=== PATIENT | male | born 1960 | race Two or more races ===

== ENCOUNTER 2021-08-08 12:22 | Inpatient (IN) | payer OTHER ==
[~2021-08-08] VITALS: Ht 190.5 cm; Wt 77.1 kg
--- NOTE | 2021-08-08 12:40 | NUR ---
[id number] C/O GENERALIZED WEAKNESS SINCE THIS MORNING, DIALYSIS PT DIALYSIS NOT DONE TODAY. THE PATIENT IS ALERT AND ORIENTED X4. IN ROOM AIR AND DENIES SOB. RESPIRATION REGULAR AND UNLABORED. THE PATIENT IS ATTACHED TO THE MONITOR. WARM BLANKET PROVIDED FOR COMFORT. WILL CONTINUE TO MONITOR THE PATIENT.
[2021-08-08 14:13] LABS: BASOPHILS % (AUTO) 0.4 % (0.0-2.0); EOSINOPHILS % (AUTO) 0.9 % (0.0-6.0); HEMATOCRIT 30 % (39-51); HEMOGLOBIN 9.9 g/dL (13.5-17.5); LYMPHOCYTES # (AUTO) 0.3 K/uL (0.8-4.8); MEAN CORPUSCULAR HGB CONC 33 g/dl (31.0-36.0); MEAN CORPUSCULAR VOLUME 99 fL (80-96); MONOCYTES # (AUTO) 0.4 K/uL (0.1-1.30); MONOCYTES % (AUTO) 10.3 % (2.0-12.0); NEUTROPHILS # (AUTO) 3.1 K/uL (1.8-8.9); NEUTROPHILS % (AUTO) 80.4 % (43.0-81.0); PLATELET COUNT (AUTO) 117 K/uL (150-450); RED BLOOD CELL COUNT(AUTO) 2.98 MIL/uL (4.5-6.0); WHITE BLOOD COUNT (AUTO) 3.8 K/uL (4.3-11.0)
[2021-08-08 14:29] LABS: ALBUMIN 3.7 g/dL (3.4-5.0); BILIRUBIN,TOTAL 0.5 mg/dL (0.2-1.0); CALCIUM, SERUM 8.1 mg/dL (8.5-10.1); TOTAL PROTEIN, SERUM 7.5 g/dL (6.4-8.2)
[2021-08-08] MEDS ORDERED: GABAPENTIN 100 MG CAPSULE PO ONE (14:30)
[2021-08-08 14:32] LABS: CREATININE 9.7 mg/dL (0.6-1.3); POTASSIUM 7.5 mmol/L (3.5-5.1)
[2021-08-08] MEDS ORDERED: DEXTROSE 50%-WATER 50 ML DISP.SYRIN ONE ×2 (14:46→16:08)
[2021-08-08] MEDS ORDERED: CALCIUM CHLORIDE 1,000 MG/10 ML DISP.SYRIN ONE (14:46)
[2021-08-08] MEDS ORDERED: INSULIN REGULAR, HUMAN 100 UNIT/ML 10 ML VIAL ONE (14:47)
[2021-08-08] MEDS ORDERED: ALBUTEROL FS 2.5 MG/3 ML VIAL.NEB ONE (14:48)
[2021-08-08] MEDS ORDERED: INSULIN REGULAR, HUMAN 100 UNIT/ML 10 ML VIAL SQ ONE (15:00)
[2021-08-08] MEDS ORDERED: CALCIUM CHLORIDE 1,000 MG/10 ML DISP.SYRIN IV ONE (15:00)
[2021-08-08] MEDS ORDERED: ALBUTEROL FS 2.5 MG/3 ML VIAL.NEB NEB ONE (15:00)
[2021-08-08] MEDS ORDERED: DEXTROSE 50%-WATER 50 ML DISP.SYRIN IV ONE (15:00)
--- NOTE | 2021-08-08 15:18 | NUR ---
COVID ANTIGEN SWAB DONE AND SENT TO THE LAB
[2021-08-08] MEDS ORDERED: GABAPENTIN 100 MG CAPSULE ONE (15:43)
--- NOTE | 2021-08-08 15:50 | NUR ---
CALLED [facility] [phone]
--- NOTE | 2021-08-08 16:05 | NUR ---
DR. HARDEN FROM [facility] SPEAKING WITH DR. RODRÍGUEZ.
[2021-08-08] MEDS ORDERED: BISO5TAB20 PO (16:20)
[2021-08-08] MEDS ORDERED: ATOR40TA PO (16:20)
[2021-08-08] MEDS ORDERED: HYDR-3980 PO (16:20)
[2021-08-08] MEDS ORDERED: GABA-532 PO (16:20)
[2021-08-08] MEDS ORDERED: OMEP20TA5 PO (16:20)
[2021-08-08] MEDS ORDERED: LISI2.5T2 PO (16:20)
--- NOTE | 2021-08-08 16:22 | NUR ---
PER DR RODRÍGUEZ DEXTROSE 50 % IV ONCE. THE ORDER IS READ BACK, VERIFIED. NOTED AND CARRIED OUT.
[2021-08-08] MEDS ORDERED: DEXTROSE 50%-WATER 50 ML DISP.SYRIN IVP ONE (16:30)
--- NOTE | 2021-08-08 17:38 | NUR ---
[facility] CALLED AIR TRAFFIC CONTROL SUPERVISOR PAGED.
[2021-08-08] MEDS ORDERED: Z GUARD REMEDY 4 OZ OINT TP PRN (18:30)
[2021-08-08] MEDS ORDERED: ONDANSETRON HCL/PF 4 MG/2 ML VIAL IVP PRN (18:30)
[2021-08-08] MEDS ORDERED: MAGNESIUM HYDROXIDE 30 ML UDC PO PRN (18:30)
[2021-08-08] MEDS ORDERED: MAG HYDROX/AL HYDROX/SIMETH 30 ML UDC PO PRN (18:30)
[2021-08-08] MEDS ORDERED: ACETAMINOPHEN 325 MG TABLET PO PRN (18:30)
--- NOTE | 2021-08-08 19:26 | NUR ---
ATTEMPTED TO GIVE REPORT, NURSE IS BUSY GETTING REPORT FOR OTHER PATIENT
--- NOTE | 2021-08-08 19:34 | NUR ---
RN NOTES RECEIVED ER ADMISSION REPORT FROM DALIA MUNOZ. ALL PERTINENT ADMISSION INFO REGARDING PT NOTED. WILL WAIT FOR PT TO BE TRANSFERRED TO UNIT AND ADDRESS NEEDS ACCORDINGLY. TAIL WORKER MADE AWARE.
--- NOTE | 2021-08-08 19:38 | NUR ---
REPORT GIVEN TO EASTON GÓMEZ FOR [facility]
[2021-08-08 20:00] VITALS: BP 147/83
--- NOTE | 2021-08-08 20:00 | NUR ---
RN NOTES RECEIVED PT FROM ER VIA GURNEY ACCOMPANIED BY 2 ER STAFF AND TRANSFERRED TO BED INDEPENDENTLY. PT IS A/OX4;ON ROOM AIR WITH RESPIRATIONS EVEN AND UNLABORED. COMPREHENSIVE PHYSICAL ASSESSMENT AND PATIENT CARE DONE. CALL LIGHT WITHIN REACH, SAFETY MEASURES WILL CONTINUE MONITOR AND ASSESS THROUGHOUT THE SHIFT. WILL CARRY OUT MD ORDERS ACCORDINGLY. BATTERY HAND MADE AWARE.
[2021-08-08 20:01] LABS: CALCIUM, SERUM 8.6 mg/dL (8.5-10.1)
[2021-08-08 20:05] LABS: POTASSIUM 6.4 mmol/L (3.5-5.1)
[2021-08-08 20:10] LABS: ALBUMIN 3.4 g/dL (3.4-5.0); BILIRUBIN,TOTAL 0.5 mg/dL (0.2-1.0); TOTAL PROTEIN, SERUM 7.1 g/dL (6.4-8.2)
[2021-08-08] MEDS ORDERED: ATORVASTATIN 40 MG TABLET PO SCH (22:00)
[2021-08-09] VITALS: BP 146/75
[2021-08-09 04:00] VITALS: BP 125/68
--- NOTE | 2021-08-09 04:00 | NUR ---
RN NOTES PATIENT REMAINED TO BE IN NO SIGNS OF ACUTE RESPIRATORY DISTRESS , SAFE ENVIRONMENT MAINTAINED FOR PT. WILL CONTINUE TO MONITOR AND REASSESS FOR ANY CHANGES THROUGHOUT THE SHIFT.
--- NOTE | 2021-08-09 06:38 | NUR ---
RN CLOSING NOTE: PATIENT REMAINS IN ROOM IN NO SIGNS OF RESPIRATORY DISTRESS, PATIENT STILL ON ROOM AIR;TOLERATING WELL SATURATING @ >95% SP02. SAFETY MEASURES IMPLEMENTED, BED IN LOWEST POSITION, LOCKED, SIDE RAILS UP, CALL LIGHT WITHIN REACH. ALL NEEDS AND ORDERS ADDRESSED DURING THE SHIFT. IV ACCESS MAINTAINED INTACT, SECURED AND FLUSHING WELL. ALL DUE MEDS GIVEN ORDERED & SCHEDULED ; PATIENT TOLERATED WELL. PATIENT KEPT CLEAN AND COMFORTABLE WITHIN THE SHIFT. PATIENT ENDORSED TO INCOMING SHIFT RN WITH STABLE VITAL SIGN AND FOR CONTINUITY OF CARE.
--- NOTE | 2021-08-09 07:00 | NUR ---
RN NOTE RECEIVED PATIENT IN BED RESTING ALERT ORIENTEDX4 VERBALLY RESPONSIVE ON ROOM AIR O2:97% IV SITE IS ON RIGHT FOREARM AND LEFT UPPER CHEST HD CATH,INTACT PATENT,AMBULATORY,SAFETY MEASURE IMPLEMENT BED IN LOW POSITION,AND LOCKED.CALL LIGHT WITHIN REACH CONTINUE TO MONITOR.
[2021-08-09 07:27] LABS: CALCIUM, SERUM 7.9 mg/dL (8.5-10.1); MAGNESIUM 2.3 mg/dL (1.8-2.4); PHOSPHORUS 2.4 mg/dL (2.5-4.9)
[2021-08-09 07:36] LABS: POTASSIUM 7.2 mmol/L (3.5-5.1)
[2021-08-09 07:37] LABS: CREATININE 7.7 mg/dL (0.6-1.3)
[2021-08-09 07:53] LABS: BASOPHILS % (AUTO) 0.5 % (0.0-2.0); EOSINOPHILS % (AUTO) 3.8 % (0.0-6.0); HEMATOCRIT 33 % (39-51); HEMOGLOBIN 10.8 g/dL (13.5-17.5); LYMPHOCYTES # (AUTO) 0.5 K/uL (0.8-4.8); LYMPHOCYTES % (AUTO) 15.4 % (20.0-44.0); MEAN CORPUSCULAR HGB CONC 33 g/dl (31.0-36.0); MEAN CORPUSCULAR VOLUME 100 fL (80-96); MONOCYTES # (AUTO) 0.5 K/uL (0.1-1.30); NEUTROPHILS # (AUTO) 2.3 K/uL (1.8-8.9); NEUTROPHILS % (AUTO) 65.3 % (43.0-81.0); PLATELET COUNT (AUTO) 100 K/uL (150-450); RED BLOOD CELL COUNT(AUTO) 3.28 MIL/uL (4.5-6.0); WHITE BLOOD COUNT (AUTO) 3.5 K/uL (4.3-11.0)
[2021-08-09 08:00] VITALS: BP 126/77
--- NOTE | 2021-08-09 08:00 | NUR ---
RN NOTE RECEIVED CRITICAL LAB VALUE POTASSIUM 7.2 CALLED GIANNA VALENCIA HE ORDERED STAT HEMODIALYSIS,NOTED AND CARRIED OUT.
[2021-08-09] MEDS: GABAPENTIN 100 MG CAPSULE PO SCH ×2 (08:08→17:00)
--- NOTE | 2021-08-09 08:30 | NUR ---
RN NOTE PATIENT STARTS DIALYSIS AT THIS TIME PER DR ESCALANTE,CONTINUE TO MONITOR.
[2021-08-09] MEDS ORDERED: PANTOPRAZOLE 40 MG TABLET.DR PO SCH (09:00)
[2021-08-09] MEDS ORDERED: BISOPROLOL FUMARATE 5 MG TABLET PO SCH (09:00)
[2021-08-09] MEDS ORDERED: HYDROCODONE/APAP 10/325MG TABLET PO PRN (09:30)
[2021-08-09 12:00] VITALS: BP 103/62
--- NOTE | 2021-08-09 13:00 | NUR ---
RN NOTE DIALYSIS DONE AND TOOK OUT 1450 ML FLUID OUT OF BODY CONTINUE TO MONITOR.
[2021-08-09 14:16] LABS: CREATININE 5.1 mg/dL (0.6-1.3); POTASSIUM 4.4 mmol/L (3.5-5.1)
[2021-08-09 16:00] VITALS: BP 90/59
--- NOTE | 2021-08-09 19:00 | NUR ---
RN NOTE PATIENT WANTS GO HOME AMA NOTIFIED DR SANCHEZ,HE SIGNED AMA PAPER AND PICKED UP HIS BELONGINGS AND SIGNED BELONGING PAPER.
--- NOTE | 2021-08-09 19:27 | NUR ---
RN NOTE PATIENT LEFT AMA IN STABLE CONDITION EDUCATED THE PATIENT REGARDING MEDICATION HE VERBALIZED UNDERSTOOD ALL TEACHING IV SITE REMOVED NO BLEEDING NOT,DRESSED INTACT.BROTHER PICKED HIM UP. Addendum: 08/09/21 at 1957 by ANTHONY COULTER RN FILLED OUT INCIDENT REPORT IN COMPUTER NUMBER IS [id number]
[2021-08-10] MEDS ORDERED: LISINOPRIL (5MG) 5 MG TABLET PO SCH (09:00)
== END 2021-08-09 20:19 | disposition left against medical advice (07) | DRG 640 ==
LOC: ER 12:42 → TELE1 19:33
PROVIDERS: ADMIT Internal Medicine; ATTEND Internal Medicine
PROC: 5A1D70Z Performance of Urinary Filtration, Intermittent, Less than 6 Hours Per Day (ICD-10-PCS; principal; 2021-08-08)
DX: E87.5 Hyperkalemia (principal); N18.6 End stage renal disease; I12.0 Hypertensive chronic kidney disease with stage 5 chronic kidney disease or end stage renal disease; Z99.2 Dependence on renal dialysis; Z53.29 Procedure and treatment not carried out because of patient's decision for other reasons; Z20.822 Contact with and (suspected) exposure to COVID-19; G89.29 Other chronic pain; Z74.09 Other reduced mobility
CPT/HCPCS: 36415; 71045-TC; 80048-TC; 80053-TC; 82962-TC; 83735-TC; 84100-TC; 85025-TC; 86706; 87081-TC; 87340; 90935-TC; 94762-TC; 94799-TC; C9803; G0378; J1815; J3490; J7030

== ENCOUNTER 2021-10-19 17:41 | Emergency (ER) | payer OTHER ==
[~2021-10-19] VITALS: Ht 188 cm; Wt 58.5 kg
[~2021-10-19 17:41] MED LIST: ATOR40TA PO; BISO5TAB20 PO; GABA-532 PO; HYDR-3980 PO; LISI2.5T2 PO; OMEP20TA5 PO
--- NOTE | 2021-10-19 17:48 | NUR ---
BIBA RA78 Weak/dizzy post dialysis. PLACED ON BED, AAOX4, BREATHING EVEN AND UNLABORED SATURATING AT 98%, BP-83/50
--- NOTE | 2021-10-19 18:00 | NUR ---
AT BED SIDE
[2021-10-19] MEDS ORDERED: IV NS 0.9% 500 ML BAG IV ONE (18:30)
--- NOTE | 2021-10-19 18:33 | NUR ---
PUBLIC AFFAIRS SPECIALIST AT BED SIDE
[2021-10-19 19:09] LABS: CALCIUM, SERUM 7.1 mg/dL (8.5-10.1); CARBON DIOXIDE 30 mmol/L (21-32); CHLORIDE 99 mmol/L (98-107); CREATININE 5.7 mg/dL (0.6-1.3); GLUCOSE 81 mg/dL (74-106); POTASSIUM 3.6 mmol/L (3.5-5.1); SODIUM SERUM 138 mmol/L (136-145); UREA NITROGEN, BLOOD 16 mg/dL (7-18)
[2021-10-19 19:15] LABS: ALANINE AMINOTRANSFERASE 12 U/L (12-78); ALBUMIN 2.8 g/dL (3.4-5.0); ALKALINE PHOSPHATASE 54 U/L (46-116); ASPARTATE AMINOTRANSFERASE 21 U/L (15-37); BILIRUBIN,DIRECT 0.2 mg/dL (0.0-0.2); BILIRUBIN,TOTAL 0.4 mg/dL (0.2-1.0); TOTAL PROTEIN, SERUM 6.5 g/dL (6.4-8.2)
[2021-10-19 19:16] LABS: MAGNESIUM 1.9 mg/dL (1.8-2.4); PHOSPHORUS 2.9 mg/dL (2.5-4.9)
[2021-10-19 20:12] LABS: BASOPHILS % (AUTO) 0.6 % (0.0-2.0); EOSINOPHILS % (AUTO) 4.9 % (0.0-6.0); HEMATOCRIT 26 % (39-51); HEMOGLOBIN 8.5 g/dL (13.5-17.5); LYMPHOCYTES # (AUTO) 0.3 K/uL (0.8-4.8); LYMPHOCYTES % (AUTO) 16.5 % (20.0-44.0); MEAN CORPUSCULAR HGB CONC 33 g/dl (31.0-36.0); MEAN CORPUSCULAR VOLUME 97 fL (80-96); MONOCYTES # (AUTO) 0.2 K/uL (0.1-1.30); NEUTROPHILS # (AUTO) 1.3 K/uL (1.8-8.9); PLATELET COUNT (AUTO) 133 K/uL (150-450); RED BLOOD CELL COUNT(AUTO) 2.65 MIL/uL (4.5-6.0)
[2021-10-19 20:22] LABS: WHITE BLOOD COUNT (AUTO) 1.9 K/uL (4.3-11.0)
--- NOTE | 2021-10-19 20:26 | NUR ---
CRITICAL LAB - WBC 1.9
--- NOTE | 2021-10-19 21:25 | NUR ---
HEEL GUMMER AT PT'S BEDSIDE
[2021-10-19] MEDS ORDERED: HYDROCODONE/APAP 5/325MG TABLET PO ONE (21:30)
[2021-10-19 21:48] LABS: EOSINOPHILS % (MANUAL) 3 % (0-4); LYMPHOCYTES % (MANUAL) 18 % (16-48); MONOCYTES % (MANUAL) 8 % (0-11.0); NEUTROPHILS % (MANUAL) 71 (42-76)
--- NOTE | 2021-10-19 22:53 | NUR ---
CALLED [facility], AWAITING CALL BACK FOR DISCHARGE TRANSPORT
--- NOTE | 2021-10-19 23:08 | NUR ---
DR. HAROON DUMONT ON PHONE CALL WITH FROM [place].
--- NOTE | 2021-10-19 23:09 | NUR ---
PATIENT LIVES WITH HIS BROTHER TAMIKA [id number] 2007 AT [address] [facility].[id number] PATIENT CLAIMS THAT IT DOESNT NEED A MERAZ TO THEIR DOOR IT HAS A COMBINATION NUMBER THAT HE CAN TELL TO THE EMT TO OPEN.
--- NOTE | 2021-10-19 23:30 | NUR ---
[facility] SET UP TRANSPORT HOME ETA 0030 VIA [facility]
--- NOTE | 2021-10-19 23:56 | NUR ---
REPORT GIVEN TO [facility] FOR PT TO DC HOME. [facility] AT PT'S BEDSIDE
[2021-10-20 00:14] VITALS: BP 121/78
== END 2021-10-20 00:15 | disposition home or self-care (01) ==
LOC: ER 17:44
DX: I95.3 Hypotension of hemodialysis (principal); I12.0 Hypertensive chronic kidney disease with stage 5 chronic kidney disease or end stage renal disease; N18.6 End stage renal disease; M48.00 Spinal stenosis, site unspecified; I48.91 Unspecified atrial fibrillation; Z99.2 Dependence on renal dialysis; Z79.899 Other long term (current) drug therapy
CPT/HCPCS: 99285; 71045; 93005; 85025; 80048; 80076; 83735; 84100; 36415; 84484 ×3; 85007; J7040

== ENCOUNTER 2021-11-21 15:08 | Emergency (ER) | payer OTHER ==
[~2021-11-21] VITALS: Ht 188 cm; Wt 65.8 kg
[2021-11-21 16:04] LABS: BASOPHILS % (AUTO) 0.6 % (0.0-2.0); EOSINOPHILS % (AUTO) 10.5 % (0.0-6.0); HEMATOCRIT 29 % (39-51); HEMOGLOBIN 9.4 g/dL (13.5-17.5); LYMPHOCYTES # (AUTO) 0.6 K/uL (0.8-4.8); LYMPHOCYTES % (AUTO) 15.9 % (20.0-44.0); MEAN CORPUSCULAR HGB CONC 33 g/dl (31.0-36.0); MEAN CORPUSCULAR VOLUME 97 fL (80-96); MONOCYTES # (AUTO) 0.5 K/uL (0.1-1.30); MONOCYTES % (AUTO) 12.8 % (2.0-12.0); NEUTROPHILS # (AUTO) 2.4 K/uL (1.8-8.9); NEUTROPHILS % (AUTO) 60.2 % (43.0-81.0); PLATELET COUNT (AUTO) 176 K/uL (150-450); RED BLOOD CELL COUNT(AUTO) 2.95 MIL/uL (4.5-6.0)
[2021-11-21 16:17] LABS: CALCIUM, SERUM 8.9 mg/dL (8.5-10.1); CARBON DIOXIDE 24 mmol/L (21-32); CHLORIDE 95 mmol/L (98-107); GLUCOSE 88 mg/dL (74-106); POTASSIUM 5.4 mmol/L (3.5-5.1); SODIUM SERUM 135 mmol/L (136-145); UREA NITROGEN, BLOOD 54 mg/dL (7-18)
[2021-11-21 16:19] LABS: CREATININE 10.6 mg/dL (0.6-1.3)
[2021-11-21 16:30] LABS: ALANINE AMINOTRANSFERASE 6 U/L (12-78); ALBUMIN 4.6 g/dL (3.4-5.0); ALKALINE PHOSPHATASE 51 U/L (46-116); ASPARTATE AMINOTRANSFERASE 13 U/L (15-37); BILIRUBIN,DIRECT 0.2 mg/dL (0.0-0.2); BILIRUBIN,TOTAL 0.5 mg/dL (0.2-1.0); LIPASE 171 U/L (73-393); TOTAL PROTEIN, SERUM 8.5 g/dL (6.4-8.2)
[2021-11-21] MEDS ORDERED: SODIUM POLYSTYRENE SULFONATE 15 G/60 ML BOTTLE PO ONE (17:30)
[2021-11-21 17:31] VITALS: BP 132/75
[2021-11-21] MEDS ORDERED: SODIUM POLYSTYRENE SULFONATE 15 G/60 ML BOTTLE ONE (17:42)
== END 2021-11-21 19:19 | disposition short-term general hospital (02) ==
LOC: ER 15:10
DX: R53.1 Weakness (principal); Z91.15 Patient's noncompliance with renal dialysis; I12.0 Hypertensive chronic kidney disease with stage 5 chronic kidney disease or end stage renal disease; N18.6 End stage renal disease; Z99.2 Dependence on renal dialysis; E87.5 Hyperkalemia; Z98.890 Other specified postprocedural states; Z95.2 Presence of prosthetic heart valve; I44.7 Left bundle-branch block, unspecified; Z79.899 Other long term (current) drug therapy; Z20.822 Contact with and (suspected) exposure to COVID-19; R91.8 Other nonspecific abnormal finding of lung field; R09.89 Other specified symptoms and signs involving the circulatory and respiratory systems
CPT/HCPCS: 99291; 87426; 93005; 71045; 85025; 80048; 87040 ×2; 83605; 83690; 80076; 36415; 84484; C9803

== ENCOUNTER 2022-01-19 16:04 | Emergency (ER) | payer OTHER ==
[~2022-01-19] VITALS: Ht 188 cm; Wt 65.8 kg
--- NOTE | 2022-01-19 17:02 | NUR ---
[id number] HOME C/O LOWER BACK AND LLE PAIN AND SWELLING S/P FALLING OFF HIS CHAIR. PLACED ON BED, AAOX4, BREATHING EVEN AND UNLABORED, IN PAIN 8 PS.
--- NOTE | 2022-01-19 18:25 | NUR ---
PAYABLE PROCESSOR AT BEDSIDE
--- NOTE | 2022-01-19 18:43 | NUR ---
SWAB FOR COVID19 SENT TO LAB
[2022-01-19 19:33] LABS: ALBUMIN 3.5 g/dL (3.4-5.0); BILIRUBIN,DIRECT 0.2 mg/dL (0.0-0.2); BILIRUBIN,TOTAL 0.4 mg/dL (0.2-1.0); CALCIUM, SERUM 7.9 mg/dL (8.5-10.1); CREATININE 4.3 mg/dL (0.6-1.3); POTASSIUM 4.3 mmol/L (3.5-5.1); TOTAL PROTEIN, SERUM 7.9 g/dL (6.4-8.2)
[2022-01-19 19:55] LABS: BASOPHILS % (AUTO) 0.6 % (0.0-2.0); EOSINOPHILS % (AUTO) 4.7 % (0.0-6.0); HEMATOCRIT 31 % (39-51); HEMOGLOBIN 9.6 g/dL (13.5-17.5); LYMPHOCYTES # (AUTO) 0.8 K/uL (0.8-4.8); LYMPHOCYTES % (AUTO) 25.9 % (20.0-44.0); MEAN CORPUSCULAR HGB CONC 32 g/dl (31.0-36.0); MEAN CORPUSCULAR VOLUME 99 fL (80-96); MONOCYTES # (AUTO) 0.4 K/uL (0.1-1.30); MONOCYTES % (AUTO) 13.8 % (2.0-12.0); NEUTROPHILS # (AUTO) 1.7 K/uL (1.8-8.9); PLATELET COUNT (AUTO) 168 K/uL (150-450); RED BLOOD CELL COUNT(AUTO) 3.09 MIL/uL (4.5-6.0); WHITE BLOOD COUNT (AUTO) 3.2 K/uL (4.3-11.0)
--- NOTE | 2022-01-19 20:25 | NUR ---
CALLED [facility] AND PAGED JD WING
--- NOTE | 2022-01-19 21:04 | NUR ---
DR MARADIAGA FROM [facility] ON THE PHONE
--- NOTE | 2022-01-19 21:16 | NUR ---
[facility] FOR TRANSPORTATION BACK HOME
--- NOTE | 2022-01-19 22:01 | NUR ---
[facility] AT 0205.
--- NOTE | 2022-01-19 22:53 | NUR ---
DR TREVINO ON THE PHONE WITH [place]
--- NOTE | 2022-01-19 23:23 | NUR ---
PATIENT IS ACCEPTED AT [facility] BY Fide ARCEO GOING TO ER. # FOR REPORT: [phone] BLS TRANSPORTATION BY [facility] AT 0015
--- NOTE | 2022-01-19 23:43 | NUR ---
REPORT GIVEN TO [facility] GÓMEZ DENIS
--- NOTE | 2022-01-20 00:12 | NUR ---
[facility] AT BED SIDE TO TOY CONSULTANT THE PT
[2022-01-20 00:30] VITALS: BP 101/65
== END 2022-01-20 00:31 | disposition short-term general hospital (02) ==
LOC: ER 16:21
DX: M25.562 Pain in left knee (principal); R26.2 Difficulty in walking, not elsewhere classified; M25.572 Pain in left ankle and joints of left foot; Z91.15 Patient's noncompliance with renal dialysis; Z95.2 Presence of prosthetic heart valve; S89.92XA Unspecified injury of left lower leg, initial encounter; W06.XXXA Fall from bed, initial encounter; Y92.89 Other specified places as the place of occurrence of the external cause; Z79.899 Other long term (current) drug therapy; D64.9 Anemia, unspecified; D72.819 Decreased white blood cell count, unspecified; I12.0 Hypertensive chronic kidney disease with stage 5 chronic kidney disease or end stage renal disease; N18.6 End stage renal disease; Z99.2 Dependence on renal dialysis; Z20.822 Contact with and (suspected) exposure to COVID-19; M21.962 Unspecified acquired deformity of left lower leg
CPT/HCPCS: 99285; 72131; 87426; 73610; 73564; 73700; 85025; 80048; 80076; 36415; 87081; C9803

== ENCOUNTER 2022-02-07 22:22 | Emergency (ER) | payer OTHER ==
[~2022-02-07] VITALS: Ht 185.4 cm; Wt 65.8 kg
--- NOTE | 2022-02-07 22:43 | NUR ---
EMT AT PT'S BEDSIDE FOR EKG
--- NOTE | 2022-02-07 22:43 | NUR ---
FACTORY CLERK AT PT'S BEDSIDE
[2022-02-07 22:58] LABS: CALCIUM, SERUM 7.3 mg/dL (8.5-10.1); CARBON DIOXIDE 31 mmol/L (21-32); CHLORIDE 97 mmol/L (98-107); CREATININE 4.6 mg/dL (0.6-1.3); GLUCOSE 85 mg/dL (74-106); POTASSIUM 4.1 mmol/L (3.5-5.1); SODIUM SERUM 136 mmol/L (136-145); UREA NITROGEN, BLOOD 14 mg/dL (7-18)
--- NOTE | 2022-02-07 23:00 | NUR ---
COVID SWAB DONE AND SENT TO LAB
[2022-02-07 23:44] LABS: BASOPHILS % (AUTO) 1.1 % (0.0-2.0); HEMATOCRIT 29 % (39-51); HEMOGLOBIN 9.2 g/dL (13.5-17.5); LYMPHOCYTES # (AUTO) 0.6 K/uL (0.8-4.8); LYMPHOCYTES % (AUTO) 16.9 % (20.0-44.0); MEAN CORPUSCULAR HGB CONC 32 g/dl (31.0-36.0); MEAN CORPUSCULAR VOLUME 98 fL (80-96); MONOCYTES # (AUTO) 0.4 K/uL (0.1-1.30); MONOCYTES % (AUTO) 12.6 % (2.0-12.0); NEUTROPHILS # (AUTO) 2.2 K/uL (1.8-8.9); NEUTROPHILS % (AUTO) 64.4 % (43.0-81.0); PLATELET COUNT (AUTO) 93 K/uL (150-450); RED BLOOD CELL COUNT(AUTO) 2.93 MIL/uL (4.5-6.0); WHITE BLOOD COUNT (AUTO) 3.4 K/uL (4.3-11.0)
--- NOTE | 2022-02-08 00:43 | NUR ---
PILE DRIVER AT PT'S BEDSIDE
[2022-02-08] MEDS ORDERED: AZITHROMYCIN 500 MG in IV D5W 250 ML IV ONE (01:00)
[2022-02-08] MEDS ORDERED: CEFTRIAXONE 1GM BAG (ER ONLY) 1 GM/50 ML PIGGYBACK IV ONE (01:00)
[2022-02-08] MEDS ORDERED: AZITHROMYCIN 500 MG VIAL ONE (01:05)
[2022-02-08] MEDS ORDERED: CEFTRIAXONE 1GM BAG (ER ONLY) 100 ML IV ONE (01:05)
--- NOTE | 2022-02-08 01:26 | NUR ---
BLOOD CULTURES COLLECTED AND SENT TO LAB
--- NOTE | 2022-02-08 01:50 | NUR ---
[facility] PAGED PER DR MURGUIA
--- NOTE | 2022-02-08 02:29 | NUR ---
ACCEPTED AT [facility] UNDER DR. MORENO TO GO TO ER TRANSPORTATION ETA 4AM # FOR REPORT: [phone]
--- NOTE | 2022-02-08 02:42 | NUR ---
REPORT GIVEN TO DALIA WOODRUFF
[2022-02-08] MEDS ORDERED: MORPHINE SULFATE INJ 4 MG/ML DISP.SYRIN ONE (02:46)
[2022-02-08] MEDS ORDERED: MORPHINE SULFATE INJ 2 MG/ML DISP.SYRIN IV ONE (03:00)
[2022-02-08] MEDS ORDERED: IV NS 0.9% 500 ML BAG IV ONE (03:30)
--- NOTE | 2022-02-08 04:51 | NUR ---
prn at bedside for patient transportation to [facility]
[2022-02-08 04:52] VITALS: BP 90/75
[2022-02-08 11:32] LABS: BAND % (MANUAL) 2 % (0.0-5.0); BASOPHILS % (MANUAL) 0 % (0.0-2.0); EOSINOPHILS % (MANUAL) 6 % (0-4); LYMPHOCYTES % (MANUAL) 9 % (16-48); MONOCYTES % (MANUAL) 8 % (0-11.0); NEUTROPHILS % (MANUAL) 75 (42-76)
== END 2022-02-08 05:07 | disposition short-term general hospital (02) ==
LOC: ER 22:28
DX: R53.1 Weakness (principal); R94.31 Abnormal electrocardiogram [ECG] [EKG]; Z20.822 Contact with and (suspected) exposure to COVID-19; M25.561 Pain in right knee; R91.8 Other nonspecific abnormal finding of lung field; Z79.899 Other long term (current) drug therapy; I13.2 Hypertensive heart and chronic kidney disease with heart failure and with stage 5 chronic kidney disease, or end stage renal disease; N18.6 End stage renal disease; I50.9 Heart failure, unspecified; Z99.2 Dependence on renal dialysis; Z95.2 Presence of prosthetic heart valve; D64.9 Anemia, unspecified
CPT/HCPCS: 99285; 96365; 71045; 96367; 96366; 87426; 93005; 85025; 80048; 36415 ×2; 84484 ×2; 83880; 87040 ×2; 85007; C9803; J2270; J0456; J0696

== ENCOUNTER 2022-03-31 20:30 | Emergency (ER) | payer OTHER ==
[~2022-03-31] VITALS: Ht 188 cm; Wt 70.3 kg
--- NOTE | 2022-03-31 20:40 | NUR ---
ADRIA Perdue FROM [facility] FOR AMS. OX4 ON TRIAGE. PLACED IN BED, OX4, BREATHING EVEN AND UNLABORED SATURATING AT 98% WITH 2LIT O2.
--- NOTE | 2022-03-31 21:15 | NUR ---
X-RAY TECH. AT BEDSIDE
--- NOTE | 2022-03-31 21:16 | NUR ---
PER PATIENT HE IS NOT PRODUCING URINE ANY MORE. DR BLANCO MADE AWARE
--- NOTE | 2022-03-31 21:24 | NUR ---
SUPERVISING EDITOR NEWS REEL AT BEDSIDE
[2022-03-31 21:38] LABS: BASOPHILS % (AUTO) 0.9 % (0.0-2.0); EOSINOPHILS % (AUTO) 2.9 % (0.0-6.0); HEMATOCRIT 30 % (39-51); HEMOGLOBIN 9.4 g/dL (13.5-17.5); LYMPHOCYTES # (AUTO) 0.3 K/uL (0.8-4.8); LYMPHOCYTES % (AUTO) 8.9 % (20.0-44.0); MEAN CORPUSCULAR HGB CONC 31 g/dl (31.0-36.0); MEAN CORPUSCULAR VOLUME 100 fL (80-96); MONOCYTES # (AUTO) 0.4 K/uL (0.1-1.30); MONOCYTES % (AUTO) 11.1 % (2.0-12.0); NEUTROPHILS % (AUTO) 76.2 % (43.0-81.0); PLATELET COUNT (AUTO) 152 K/uL (150-450); RED BLOOD CELL COUNT(AUTO) 3.05 MIL/uL (4.5-6.0); WHITE BLOOD COUNT (AUTO) 3.9 K/uL (4.3-11.0)
[2022-03-31 21:54] LABS: CALCIUM, SERUM 8.2 mg/dL (8.5-10.1); CARBON DIOXIDE 33 mmol/L (21-32); CHLORIDE 96 mmol/L (98-107); CREATININE 6.4 mg/dL (0.6-1.3); GLUCOSE 120 mg/dL (74-106); SODIUM SERUM 136 mmol/L (136-145); UREA NITROGEN, BLOOD 28 mg/dL (7-18)
[2022-03-31 22:06] LABS: ALANINE AMINOTRANSFERASE 10 U/L (12-78); ALBUMIN 2.9 g/dL (3.4-5.0); ALKALINE PHOSPHATASE 85 U/L (46-116); ASPARTATE AMINOTRANSFERASE 33 U/L (15-37); BILIRUBIN,DIRECT 0.2 mg/dL (0.0-0.2); BILIRUBIN,TOTAL 0.4 mg/dL (0.2-1.0); TOTAL PROTEIN, SERUM 7.9 g/dL (6.4-8.2)
--- NOTE | 2022-03-31 23:01 | NUR ---
SWAB FOR COVID19 SENT TO LAB
--- NOTE | 2022-03-31 23:10 | NUR ---
PATIENT TAKEN TO CT VIA [facility]
--- NOTE | 2022-03-31 23:22 | NUR ---
CAME BACK FROM CT DEPT
--- NOTE | 2022-04-01 00:29 | NUR ---
CALLED [facility] AND PAGED CALENDER RUNNER
[2022-04-01] MEDS ORDERED: VANCOMYCIN 1 GM in IV D5W 250 ML IV ONE (00:30)
[2022-04-01] MEDS ORDERED: CEFEPIME 2 GM in IV D5W 100 ML IV ONE (00:30)
[2022-04-01] MEDS ORDERED: CEFEPIME 1 GM VIAL ONE (01:32)
[2022-04-01] MEDS ORDERED: VANCOMYCIN 1 GM VIAL ONE (01:38)
--- NOTE | 2022-04-01 03:40 | NUR ---
MALINDA NAPIER AT [facility], PT GOT ACCEPTED AT [facility] UNDER CARE OF DR. HERRERA. GOING TO ED. # FOR REPORT: [phone]. [facility] P/U ST 0800
--- NOTE | 2022-04-01 06:30 | NUR ---
CALLED [facility]. WAITING FOR CN TO GATHER REPORT. STILL NOT AVAILABLE
--- NOTE | 2022-04-01 07:59 | NUR ---
German ramos in [facility] - 04/01/22 at 0759 by DEMIAN report given to marialuisa cooley
--- NOTE | 2022-04-01 08:00 | NUR ---
report given to marialuisa GÓMEZ of [facility]
--- NOTE | 2022-04-01 08:17 | NUR ---
[facility] TRANSPORT HERE FOR TRANSPORT TO [facility]
[2022-04-01 08:54] VITALS: BP 91/53
== END 2022-04-01 08:55 | disposition short-term general hospital (02) ==
LOC: ER 20:32
DX: I13.2 Hypertensive heart and chronic kidney disease with heart failure and with stage 5 chronic kidney disease, or end stage renal disease (principal); I50.9 Heart failure, unspecified; N18.6 End stage renal disease; Z99.2 Dependence on renal dialysis; E11.22 Type 2 diabetes mellitus with diabetic chronic kidney disease; J96.01 Acute respiratory failure with hypoxia; J96.02 Acute respiratory failure with hypercapnia; Z20.822 Contact with and (suspected) exposure to COVID-19; I95.9 Hypotension, unspecified; R18.8 Other ascites; R91.8 Other nonspecific abnormal finding of lung field; Z95.2 Presence of prosthetic heart valve; Z79.899 Other long term (current) drug therapy; I44.7 Left bundle-branch block, unspecified; D72.819 Decreased white blood cell count, unspecified
CPT/HCPCS: 99285; 70450; 71045; 87426; 93005; 74176; 85025; 80048; 83605; 80076; 36415; 84484; 87081; 83880; 96365; 96367; C9803; J3370; J7060 ×2; J0692; A4223